=== PATIENT | male | born 1955 | race Caucasian/White ===

== ENCOUNTER → 2017-03-16 | Outpatient (CLI) | payer BC ==
[~2017-03-16] MED LIST: LVF500T PO
--- NOTE | 2017-03-16 17:30 | Diagnostic Imaging Report ---
PROCEDURE: CT chest with contrast only. TECHNIQUE: Multiple contiguous axial images were obtained through the chest after administration of intravenous contrast. INDICATION: Abnormal chest x-ray with chest pain. FINDINGS: Bolus contrast injection shows good opacification of the aorta and pulmonary arteries which appear normal. The lungs are well aerated and clear. No pleural effusions or pericardial effusion. No mediastinal or hilar adenopathy of pathologic size. There is noted moderate-sized hiatal hernia. There is no evidence of incarceration or distention of the hernia at this time. IMPRESSION: 1. No acute abnormality is noted. 2. Moderate-sized hiatal hernia present. These findings were discussed with Dr. Frederick. Dictated by: Dictated on workstation # [id number]
== END ==
LOC: RAD 15:49
PROVIDERS: ATTEND Family Medicine
DX: R07.89 Other chest pain (principal); K44.9 Diaphragmatic hernia without obstruction or gangrene
CPT/HCPCS: 71260; Q9967